=== PATIENT | male | born 1975 | race African-American/Black ===

== ENCOUNTER 2021-09-13 20:47 | Emergency (ER) | payer OTHER ==
[2021-09-13] MEDS ORDERED: NAPROSYN500 MG PO (22:12)
== END 2021-09-13 22:30 | disposition home or self-care (01) ==
LOC: ER1 20:47
DX: S43.101A Unspecified dislocation of right acromioclavicular joint, initial encounter (principal); F17.200 Nicotine dependence, unspecified, uncomplicated; X58.XXXA Exposure to other specified factors, initial encounter
CPT/HCPCS: 73030; 99283

== ENCOUNTER → 2021-09-23 | Outpatient (CLI) | payer OTHER ==
[~2021-09-23] MED LIST: NAPROSYN500 MG PO
== END ==
LOC: KOH-I 12:09
DX: M75.101 Unspecified rotator cuff tear or rupture of right shoulder, not specified as traumatic (principal); J45.40 Moderate persistent asthma, uncomplicated; J30.9 Allergic rhinitis, unspecified; L40.9 Psoriasis, unspecified
CPT/HCPCS: 73030

== ENCOUNTER → 2021-09-30 | Outpatient (CLI) | payer OTHER | LOC: KOH-I 09:15 | DX: M75.101 Unspecified rotator cuff tear or rupture of right shoulder, not specified as traumatic (principal); M25.611 Stiffness of right shoulder, not elsewhere classified; S42.291A Other displaced fracture of upper end of right humerus, initial encounter for closed fracture | CPT/HCPCS: 73221 ==

== ENCOUNTER 2022-01-15 16:40 | Emergency (ER) | payer OTHER ==
[2022-01-15 17:14] LABS: HEMOGLOBIN 15.7 gm/dl (14.0-17.5); RED BLOOD COUNT 5.14 M/UL (4.20-5.50); WHITE BLOOD COUNT 11.6 K/UL (4.5-11.0)
[2022-01-15 17:41] LABS: BUN/CREATININE RATIO 14 (0-10)
[2022-01-15] MEDS ORDERED: IBUPROFEN800 MG PO (19:47)
== END 2022-01-15 19:57 | disposition home or self-care (01) ==
LOC: ER1 16:40
PROVIDERS: Preventive Medicine Occupational Medicine
DX: S00.83XA Contusion of other part of head, initial encounter (principal); S20.219A Contusion of unspecified front wall of thorax, initial encounter; F17.200 Nicotine dependence, unspecified, uncomplicated; Y04.8XXA Assault by other bodily force, initial encounter; Y92.009 Unspecified place in unspecified non-institutional (private) residence as the place of occurrence of the external cause
CPT/HCPCS: 36600; 70450; 70486; 71045; 72125; 73020; 73120; 80053; 80307; 81001; 82550; 82553; 82803; 83690; 84484; 85025; 85652; 86140; 87086; 96374; 99284; G0480; J1885; J7030